=== PATIENT | male | born 1965 | race Caucasian/White ===

== ENCOUNTER 2023-04-16 08:33 | Outpatient (AMB) | payer MEDICARE, MEDICAID, SELFPAY ==
--- NOTE | 2023-04-16 08:55 | MHC.OFFWIV ---
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 He states that he had COVID 2 weeks ago, and had very minor symptoms, and has recently been testing negative. He denies any fever or chills. Denies any shortness of breath or cough. [facility] Social History Patient Tobacco Use Status: Never used Tobacco Review of Systems Const All systems reviewed & are unremarkable except as noted in HPI and below Physical Exam Vital Signs: Last Vital Signs Temp 97.5 F 04/16/23 09:03 Pulse 90 04/16/23 09:03 BP 116/60 04/16/23 09:03 Pulse Ox 97 04/16/23 09:03 Oxygen Delivery Method Room Air 04/16/23 09:03 BMI result Body Mass Index 30.0 Const General: cooperative, healthy appearing and no acute distress HEENT Head: Yes normal to inspection and Yes normocephalic Ears: unable to visualize TM (cerumen) bilaterally General nose exam: Normal external nose present and Normal nasal mucous membranes and turbinates present Face and sinus: Yes normal facial exam and Yes sinuses nontender Mouth: Normal oral and palatal mucosa present Throat: Yes posterior oropharynx normal Neck Neck: Yes no lymphadenopathy Resp Effort & Inspection: normal respiratory effort and able to speak in complete sentences Auscultation: wheezes upper bilaterally (otherwise LS clear b/l) Cardio Jugular venous distension: no JVD Palpation: normal PMI Rate: regular rate Rhythm: regular rhythm Skin General skin exam: no rashes or lesions noted Extrem General: Yes capillary refill normal and Yes no clubbing, cyanosis or edema Psych Appearance: grossly normal Mental Status: mental status grossly normal Speech and movement: Normal speech and movement present Office Procedures Cerumen Removal From which ear canal was the cerumen removed: bilateral Removal: irrigation Notes: patient tolerated procedure well, no complications and ear canal clear [id number] Irrigation/Lavage Assessment & Plan Assessment & Plan (1) Impacted cerumen of both ears: Code(s): H61.23 - Impacted cerumen, bilateral Plan: Irrigation of bilateral ears performed in the office today with good effect. Left ear completely clear following irrigation, right ear continues to have a small amount of cerumen in it. I advised patient to utilize Debrox drops [id number] two continue to soften this cerumen. Fluid/mild dullness noted of left TM. Given this and the patient's ongoing wheezing s/p Covid infection about 2 weeks ago, I will start him on a short course of prednisone, which patient states he has done well on previously. We reviewed indications, use, possible side effects of this including increase in blood sugar. We reviewed the lack of indication for antibiotic use at this time, which he understands. If he does not improve with treatment, or if he does develop any worsening symptoms, fever, or shortness of breath, he can return to the clinic for further evaluation. He verbalizes understanding and agrees to plan. He recently had COVID-19, and would like to have repeat test done to make sure he is testing negative. We reviewed possibility of testing positive despite resolution of active infection, however patient would like to have test done. (2) Wheezing on auscultation: Code(s): R06.2 - Wheezing Plan: As above. Orders: Orders BinaxNOW Covid-19 Ag Today U07.1 - COVID-19 Medications: New prednisone Take twice daily with food. Avoid taking near bedtime. Closely monitor blood sugar while on this medication. 20 mg PO BID 6 tabs 0RF 3 days R06.2 - Wheezing Coding Level of Care Code Est Pt Level 3 (60391) Diagnoses Impacted cerumen of both ears H61.23 Wheezing on auscultation R06.2 CPT Codes Office Procedure - CPT: 26542-Bkp Irrigation/Lavage ([id number])
[2023-04-16 09:03] VITALS: BP 116/60; PULSE 90; TEMP 36.4; O2SAT 97
== END 2023-04-16 09:59 | disposition home or self-care (01) ==
PROVIDERS: Visit Provider Nurse Practitioner Family
DX: R06.2 Wheezing (principal); H61.23 Impacted cerumen, bilateral
CPT/HCPCS: 69209; 99213

== ENCOUNTER 2023-04-16 09:54 | Outpatient (REF) | payer MEDICARE, MEDICAID, SELFPAY ==
[2023-04-16 10:32] LABS: Binax Now Covid-19 Ag Negative (Negative)
[2023-04-16 10:33] LABS: Binax Internal Control QC Valid
== END 2023-04-16 09:55 | disposition home or self-care (01) ==
LOC: HO.HMGCLDS 09:54
PROVIDERS: PCP Family Medicine; Visit Provider Nurse Practitioner Family
DX: U07.1 COVID-19 (principal)
CPT/HCPCS: 87811

== ENCOUNTER 2023-07-25 09:19 | Outpatient (AMB) | payer MEDICARE, MEDICAID, SELFPAY ==
[2023-07-25 09:55] VITALS: BP 134/74; PULSE 95; TEMP 36.7; O2SAT 94; BMI 28.0
--- NOTE | 2023-07-25 09:55 | MHC.OFFWIV ---
Intake Vital Signs 07/25/23 09:55 Height 5 ft 10 in Weight 195 lb BMI 28.0 BP 134/74 Blood Pressure Location Lt brachial Position Sitting Pulse 95 Pulse Source Pulse Oximeter Temp 98.1 F Temp Source Oral Pulse Oximetry (%) 94 Oxygen Delivery Method Room Air Intake Visit Reasons: EST/left ear blockage (lobby) Intake Note: Pt is here today c/o Lt ear blocked ?fluid Patient Tobacco Use Status: Never used Tobacco Allergies No Known Allergies Allergy (Verified 07/25/23 10:25) Medication List - Last Reconciled 07/25/23 by Sydney Lawrence, DERICK- clomipramine 75 mg PO BEDTIME lithium carbonate 150 mg PO BID lithium carbonate 300 mg PO DAILY quetiapine 25 mg PO BEDTIME HPI HPI Comments History of Present Illness Details Here today with acute on chronic left ear blockage. Reports several months ago he was placed on prednisone which did help for a short time. Then in May he was placed on methylprednisolone by his primary care provider. Did have improvement in his symptoms until he developed a cold a few weeks ago. Since this time he continues to feel fullness and like his hearing is blocked on the left side. He does not have pain he does not have a fever and he has not tried any at home treatments. Does take Claritin every now and then for allergies but not something he takes every day. [facility] Social History Patient Tobacco Use Status: Never used Tobacco Review of Systems Const All systems reviewed & are unremarkable except as noted in HPI and below Physical Exam Vital Signs: Last Vital Signs Temp 98.1 F 07/25/23 09:55 Pulse 95 07/25/23 09:55 BP 134/74 07/25/23 09:55 Pulse Ox 94 07/25/23 09:55 Oxygen Delivery Method Room Air 07/25/23 09:55 BMI result Body Mass Index 28.0 Const Other: Awake alert oriented TM intact on the left side with congestion, no erythema, no bulging no loss of landmarks. EAC clear. Cerumen in the EAC on the right side unable to see TM Assessment & Plan Assessment & Plan (1) Dysfunction of left eustachian tube: Code(s): H69.92 - Unspecified Eustachian tube disorder, left ear Plan: This note is constructed using voice recognition software. While every effort has been made to ensure accuracy in organic extractions technician, still errors may have been included Sometimes, these errors may affect the content or meaning of the given sentence . Plan . Medications: New fluticasone propionate 50 mcg/actuation administer into each nostril 1 spray intranasal BID 16 grams 0RF Patient Instructions: Please use the fluticasone nasal spray 1 spray each nostril 2 times per day indefinitely. Continue to take her keeg-rfs-wffappt antihistamine daily. I also would like for you to purchase Sudafed nasal decongestant. You can get this [id number] however you have to get it from the pharmacy staff. Take this only for 3 days. Then stop. Continue to do self insufflation as this can help clear the Eustachian tube. This can take several weeks and even months to completely clear. If you develop a fever, chills, worsening of your symptoms I do recommend that you follow up with your primary care provider. At that time you may want to consider an ear nose and throat specialty referral. However that is a discussion you and your primary care provider can half. Coding Level of Care Code Est Pt Level 3 (72846) Diagnoses Dysfunction of left eustachian tube H69.92
== END 2023-07-25 10:44 | disposition home or self-care (01) ==
PROVIDERS: PCP Family Medicine; Visit Provider Nurse Practitioner Family
DX: H69.92 Unspecified Eustachian tube disorder, left ear (principal)
CPT/HCPCS: 99213